=== PATIENT | male | born 1935 | race Caucasian/White ===

== ENCOUNTER → 2018-08-02 | Outpatient (CLI) | payer MEDICARE | END | disposition home or self-care (01) | LOC: SHCH 11:41 | PROVIDERS: ATTEND Internal Medicine Cardiovascular Disease | DX: I34.0 Nonrheumatic mitral (valve) insufficiency (principal); I35.8 Other nonrheumatic aortic valve disorders; I10 Essential (primary) hypertension; Z95.0 Presence of cardiac pacemaker | CPT/HCPCS: 93306 ==

== ENCOUNTER → 2018-08-08 | Outpatient (CLI) | payer MEDICARE | END | disposition home or self-care (01) | LOC: EDUNIT# 08:50 → SHCH 09:02 | PROVIDERS: ATTEND Internal Medicine Cardiovascular Disease | DX: I71.4 Abdominal aortic aneurysm, without rupture (principal) | CPT/HCPCS: 93978 ==

== ENCOUNTER → 2018-08-12 | Outpatient (CLI) | payer MEDICARE ==
[~2018-08-12] MED LIST: REGADENOSON 0.4 MG/5 ML PF SYG IVP SCH
== END | disposition home or self-care (01) ==
LOC: SHCH 08:09 → EDUNIT# 08:20
PROVIDERS: ATTEND Internal Medicine Cardiovascular Disease
DX: I10 Essential (primary) hypertension (principal); I51.89 Other ill-defined heart diseases; R01.1 Cardiac murmur, unspecified; R06.00 Dyspnea, unspecified; Z95.0 Presence of cardiac pacemaker
CPT/HCPCS: 78452; 93017; 96374; A9500 ×2; J2785

== ENCOUNTER 2019-07-07 07:17 | Day surgery (SDC) | payer MEDICARE ==
[2019-07-05 16:30] LABS: BASOPHILS % (AUTO) 0.3 % (0.0-5.0); EOSINOPHILS % (AUTO) 1.3 % (0.0-8.0); HEMATOCRIT 42.3 % (42-54); LYMPHOCYTES % (AUTO) 21.7 % (21.0-51.0); MEAN CORPUSCULAR HGB CONC 34.4 g/dL (32.0-36.0); MEAN CORPUSCULAR VOLUME 107.7 fL (79-99); MONOCYTES % (AUTO) 8.1 % (3.0-13.0); NEUTROPHILS % (AUTO) 68.6 % (40.0-77.0); PLATELET COUNT (AUTO) 110 K/uL (130-400); RED BLOOD CELL COUNT(AUTO) 3.93 MIL/uL (4.50-6.20); RED CELL DISTRIBUTION WIDTH 13.1 % (11.0-15.5); WHITE BLOOD COUNT (AUTO) 5.6 K/uL (4.8-10.8)
[2019-07-05 16:44] LABS: CREATININE 1.4 mg/dL (0.5-1.5); POTASSIUM 4.8 mmol/L (3.5-5.1)
[2019-07-05 17:03] VITALS: BP 149/76
--- NOTE | 2019-07-05 17:05 | NUR ---
RE: EKG INFORMED DR SEXTON REGARDING ABNORMAL EKG AND PATIENT MEDICAL HX INCLUDING PACEMAKER IMPLANT. PER DR SEXTON, OK TO PROCEED WITH SCHEDULED PROCEDURE.
--- NOTE | 2019-07-06 13:51 | NUR ---
LABS ABNORMAL PLT REPORTED TO DR. SEXTON. MESSAGE LEFT IN HIS CELL PHONE
--- NOTE | 2019-07-06 14:21 | NUR ---
LABS DR. SEXTON STATED OK TO PROCEED WITH SURGERY FOR ABNORMAL PLT THAT WAS REPORTED, HE WANTED US TO INFORM DR. SOARES WELL. LABS FAXED TO DR. SOARES OFFICE, MESSAGE LEFT WITH CARRIE
[2019-07-07] VITALS (12 sets, daily range): BP systolic 142–161; BP diastolic 68–94
[~2019-07-07] VITALS: Ht 185.4 cm; Wt 80.1 kg
[~2019-07-07 07:17] MED LIST changes: +LOSA25TA41 PO; -REGADENOSON 0.4 MG/5 ML PF SYG IVP SCH; +TAMS-1 PO
[2019-07-07] MEDS ORDERED: LACTATED RINGERS 1000ML 1,000 ML IV ONE (07:34)
--- NOTE | 2019-07-07 07:55 | NUR ---
SKIN RIGHT LOWER EXTREMITY WITH SMALL BANDAID IN PLACE /SMALL ABRASION TO AREA COVERED WITH BANDAID. PT STATES HIT HIMSELF YESTERDAY, TEDS /SCD APPLIED TO BLE
[2019-07-07] MEDS ORDERED: LIDOCAINE PF 2% 5ML ABBOJECT ONE (07:58)
[2019-07-07] MEDS ORDERED: PROPOFOL 10 MG/ML 20ML VIAL IV ONE (07:59)
[2019-07-07] MEDS ORDERED: FENTANYL CITRATE PF 50 MCG/1 ML 2ML VIAL ONE (07:59)
[2019-07-07] MEDS ORDERED: CEFTRIAXONE SODIUM 1 GM IVP ONE ×2 (08:00→08:38)
[2019-07-07] MEDS ORDERED: OPIUM/BELLADONNA ALKALOIDS 1 EACH SUPP.RECT RC ONE (09:12)
[2019-07-07] MEDS ORDERED: PHENAZOPYRIDINE HCL 200 MG TABLET ONE (10:15)
== END 2019-07-07 11:27 | disposition home or self-care (01) ==
LOC: DAH 07:17
PROVIDERS: ATTEND Urology
DX: N40.1 Benign prostatic hyperplasia with lower urinary tract symptoms (principal); C61 Malignant neoplasm of prostate; R35.1 Nocturia; I86.8 Varicose veins of other specified sites; N32.89 Other specified disorders of bladder; I10 Essential (primary) hypertension; G89.29 Other chronic pain; Z85.828 Personal history of other malignant neoplasm of skin; Z79.899 Other long term (current) drug therapy
CPT/HCPCS: 36415; 52648; 80048; 85025; 88307; 93005; A4215; A4221; A4222; A4223; A4354; A4358; A4495; A4600; A4606; A4663; A6260; J0696 ×2; J2001; J2704; J3010; J7120 ×2

== ENCOUNTER → 2019-10-06 | Outpatient (CLI) | payer MEDICARE ==
[~2019-10-06] MED LIST changes: +IOHEXOL 350 MG/ML 100ML INFUS..BTL IV ONE
== END | disposition home or self-care (01) ==
LOC: RAH 08:42
PROVIDERS: ATTEND Urology
DX: C67.9 Malignant neoplasm of bladder, unspecified (principal); K75.3 Granulomatous hepatitis, not elsewhere classified
CPT/HCPCS: 74178; Q9967

== ENCOUNTER → 2020-07-24 | Outpatient (CLI) | payer MEDICARE ==
[~2020-07-24] MED LIST changes: -IOHEXOL 350 MG/ML 100ML INFUS..BTL IV ONE
== END | disposition home or self-care (01) ==
LOC: SHCH 07:52
PROVIDERS: ATTEND Internal Medicine Cardiovascular Disease
DX: I08.2 Rheumatic disorders of both aortic and tricuspid valves (principal); I71.4 Abdominal aortic aneurysm, without rupture; I70.0 Atherosclerosis of aorta; I70.8 Atherosclerosis of other arteries
CPT/HCPCS: 93306; 93356; 93978

== ENCOUNTER 2020-12-06 06:23 | Day surgery (SDC) | payer MEDICARE ==
[2020-12-03 12:46] LABS: BASOPHILS % (AUTO) 0.2 % (0.0-5.0); EOSINOPHILS % (AUTO) 1.7 % (0.0-8.0); HEMATOCRIT 40.8 % (42-54); LYMPHOCYTES % (AUTO) 31.7 % (21.0-51.0); MEAN CORPUSCULAR HEMOGLOBIN 34.6 pg (27.0-33.0); MEAN CORPUSCULAR HGB CONC 34.1 g/dL (32.0-36.0); MEAN CORPUSCULAR VOLUME 101.5 fL (79-99); MONOCYTES % (AUTO) 10.1 % (3.0-13.0); NEUTROPHILS % (AUTO) 56.1 % (40.0-77.0); PLATELET COUNT (AUTO) 155 K/uL (130-400); RED BLOOD CELL COUNT(AUTO) 4.02 MIL/uL (4.50-6.20); RED CELL DISTRIBUTION WIDTH 13.6 % (11.0-15.5); WHITE BLOOD COUNT (AUTO) 4.8 K/uL (4.8-10.8)
[2020-12-03 12:55] LABS: CREATININE 1.2 mg/dL (0.5-1.5); POTASSIUM 5.1 mmol/L (3.5-5.1)
[2020-12-05 10:46] VITALS: BP 144/81
[~2020-12-06] VITALS: Ht 185.4 cm; Wt 72.4 kg
[2020-12-06] VITALS (17 sets, daily range): BP systolic 127–148; BP diastolic 61–82
[2020-12-06] MEDS: LEVOFLOXACIN 500 MG/D5W 100 ML 100 ML IV SCH ×2 (06:00→08:54)
[~2020-12-06 06:23] MED LIST changes: -TAMS-1 PO
[2020-12-06] MEDS ORDERED: LACTATED RINGERS 1000ML 1,000 ML IV ONE (06:43)
[2020-12-06] MEDS ORDERED: LIDOCAINE HCL MPF 1% 5ML VIAL ONE (08:37)
[2020-12-06] MEDS ORDERED: MIDAZOLAM HCL 1 MG/ML 2ML VIAL ONE (08:38)
[2020-12-06] MEDS ORDERED: ROCURONIUM 10MG/1ML SYR 10 MG/ML ML ONE (08:38)
[2020-12-06] MEDS ORDERED: FENTANYL CITRATE PF 50 MCG/1 ML 2ML VIAL ONE (08:38)
[2020-12-06] MEDS ORDERED: PROPOFOL 10 MG/ML 20ML VIAL IV ONE (08:38)
[2020-12-06] MEDS ORDERED: EPHEDRINE SULFATE 50 MG/ML AMPULE ONE (08:55)
[2020-12-06] MEDS ORDERED: NEOSTIGMINE 5MG/5ML SYR IV ONE (09:27)
[2020-12-06] MEDS ORDERED: GLYCOPYRROLATE 1 MG/5 ML SYRINGE ONE (09:27)
[2020-12-06] MEDS ORDERED: PHENAZOPYRIDINE HCL 200 MG TABLET ONE (10:41)
== END 2020-12-06 11:25 | disposition home or self-care (01) ==
LOC: DAH 06:23
PROVIDERS: ATTEND Urology
DX: D09.0 Carcinoma in situ of bladder (principal); N35.919 Unspecified urethral stricture, male, unspecified site; Z20.822 Contact with and (suspected) exposure to COVID-19; N30.20 Other chronic cystitis without hematuria; I10 Essential (primary) hypertension; Z85.828 Personal history of other malignant neoplasm of skin; Z87.891 Personal history of nicotine dependence; Z87.440 Personal history of urinary (tract) infections; Z79.899 Other long term (current) drug therapy
CPT/HCPCS: 36415; 52204; 80048; 85025; 87088; 93005; A4215; A4221; A4222; A4223; A4344; A4354; A4358; A4600; A5113; A6260; C9803; J1956; J2250; J2704; J2710; J3010; J3490 ×3; J7120 ×2; U0003

== ENCOUNTER 2021-03-19 07:40 | Emergency (ER) | payer MEDICARE ==
[~2021-03-19] VITALS: Ht 185.4 cm; Wt 60.8 kg
[2021-03-19 07:52] VITALS: BP 138/83
[2021-03-19 08:27] LABS: APPEARANCE,URINE CLOUDY (CLEAR); BILIRUBIN,URINE MODERATE (NEGATIVE); COLOR,URINE BROWN (YELLOW); GLUCOSE, URINE (UA) NEGATIVE (NEGATIVE); KETONES,URINE NEGATIVE (NEGATIVE); LEUKOCYTE ESTERASE ,URINE TRACE (NEGATIVE); NITRATE,URINE NEGATIVE (NEGATIVE); OCCULT BLOOD,URINE LARGE (NEGATIVE); PH,URINE 6.5 (5.0-8.0); PROTEIN,URINE 100 mg/dL (NEGATIVE)
[2021-03-19] MEDS ORDERED: ONDANSETRON 4MG INJ IVP ONE (08:30)
[2021-03-19] MEDS ORDERED: HYDROMORPHONE 0.5 MG SYG (0.5MG/0.5ML) IVP ONE (08:30)
[2021-03-19 08:35] LABS: BASOPHILS % (AUTO) 0.3 % (0.0-5.0); EOSINOPHILS % (AUTO) 0.4 % (0.0-8.0); HEMATOCRIT 38.8 % (42-54); LYMPHOCYTES % (AUTO) 20.8 % (21.0-51.0); MEAN CORPUSCULAR HEMOGLOBIN 34.7 pg (27.0-33.0); MEAN CORPUSCULAR HGB CONC 33.5 g/dL (32.0-36.0); MEAN CORPUSCULAR VOLUME 103.5 fL (79-99); MONOCYTES % (AUTO) 7.8 % (3.0-13.0); NEUTROPHILS % (AUTO) 70.3 % (40.0-77.0); PLATELET COUNT (AUTO) 183 K/uL (130-400); RED BLOOD CELL COUNT(AUTO) 3.75 MIL/uL (4.50-6.20); RED CELL DISTRIBUTION WIDTH 14.4 % (11.0-15.5); WHITE BLOOD COUNT (AUTO) 7.6 K/uL (4.8-10.8)
[2021-03-19 08:40] LABS: BACTERIA,URINE Few /HPF (None Seen); RBC,URINE TNTC /HPF (0-1); SQUAMOUS EPITHELIAL CELL,UR Few /HPF (0-2); WBC,URINE 51-100 /HPF (0-1)
[2021-03-19 08:49] LABS: CREATININE 1.5 mg/dL (0.5-1.5); POTASSIUM 3.9 mmol/L (3.5-5.1)
[2021-03-19 08:53] LABS: ALBUMIN 3.7 g/dL (3.5-5.0); BILIRUBIN,TOTAL 0.6 mg/dL (0.2-1.0); TOTAL PROTEIN, SERUM 8.5 g/dL (6.0-8.3)
[2021-03-19 10:30] VITALS: BP 138/83
[2021-03-19] MEDS ORDERED: CEPH500B PO (10:44)
== END 2021-03-19 10:50 | disposition home or self-care (01) ==
LOC: EDH 07:40
DX: N39.0 Urinary tract infection, site not specified (principal); M54.6 Pain in thoracic spine; I70.0 Atherosclerosis of aorta; I10 Essential (primary) hypertension; J44.9 Chronic obstructive pulmonary disease, unspecified; Z79.899 Other long term (current) drug therapy
CPT/HCPCS: 36415; 71045; 71250; 74150; 80053; 81001; 82150; 83690; 84484; 85025; 87088; 93005; 96374; 96375; 99285; J1170; J2405

== ENCOUNTER 2021-04-19 10:32 | Emergency (ER) | payer MEDICARE ==
[~2021-04-19] VITALS: Ht 182.9 cm; Wt 60.8 kg
[~2021-04-19 10:32] MED LIST changes: +CEPH500B PO
[2021-04-19 10:34] VITALS: BP 128/77
== END 2021-04-19 10:54 | disposition left against medical advice (07) ==
LOC: EDH 10:32
DX: Z76.0 Encounter for issue of repeat prescription (principal); Z53.21 Procedure and treatment not carried out due to patient leaving prior to being seen by health care provider